=== PATIENT | female | born 1970 | race Caucasian/White ===

== ENCOUNTER 2021-02-19 03:36 | Emergency (ER) | payer SELFPAY ==
[2021-02-19 03:38] VITALS: BP 156/91; PULSE 89; RESP 14; TEMP 36.7; O2SAT 99; BMI 20.6
--- NOTE | 2021-02-19 04:02 | CT_ITS ---
HISTORY: pain, mass EXAMINATION: CT Soft Tissue Neck W/ Contrast Injection TECHNIQUE: Helically acquired images were obtained of the neck following IV contrast. A radiation dose optimization technique was used for this scan. IV Contrast dosage and agent: IV 75mL [id number] COMPARISON: None FINDINGS: Pharyngeal tonsils are symmetric and normal in appearance. Parapharyngeal fat is preserved. Normal epiglottis. No prevertebral soft tissue thickening. No evidence of pharyngeal mass. Base of tongue is symmetric, unremarkable. Superficial soft tissue fluid collection or focal inflammatory change. No radiodense soft tissue foreign body. No cervical adenopathy. Scattered ethmoid and maxillary mucoperiosteal thickening. Unremarkable orbits. Unremarkable thyroid. Mild scarring in the lung apices. No acute osseous finding. Small posterior disc osteophyte complex C5-C6 with moderate spinal canal stenosis and suggestion of effacement of the anterior cord. CT/Soft Tissue Neck WITH Contrast IMPRESSION: No acute CT finding. Consider ENT follow-up. There is high concern for neoplastic process MRI with IV contrast could further evaluate. C5-C6 spondylosis with suggestion of effacement of the anterior cord. Consider MRI follow-up. Individualized dose optimization techniques were used for this CT. at 0617 Reported and signed by: Gabriel Duggan MD Electronically Signed: Gabriel Duggan MD at 6:16 EDT Tel , Service support ,
--- NOTE | 2021-02-19 04:03 | EX.ED.DYSGE1 ---
HPI History of Present Illness Chief Complaint: Other, Pain/Inj Informant: patient Narrative Narrative: Patient presents with concern that she has a mass in her neck. She feels as though it is about to explode. She has a history of thyroid cancer with surgery and excision back in 2010. Lymph nodes were negative. She has been maintained on Synthroid since. She has not had a level checked in a long time because she is not able to wear a mask and could not go to the lab to have lab work done. She states the area in her neck is been sensitive for 2 or 3 years. She feels as though the lymph nodes are enlarging. She feels like there is a sense that things are going to explode. She is able to eat drink swallow and breathe without difficulty. It is hard to get what happened tonight to bring her into the emergency department. Nothing specifically makes her symptoms better or worse. [facility] Medical History [facility] transplant recipient Thyroid cancer Home Medications dextroamphetamine-amphetamine [Adderall XR] 30 mg PO DAILY 02/19/21 [History Last Taken Unknown] levothyroxine [Synthroid] 125 mcg PO DAILY 02/19/21 [History Last Taken Unknown] Allergy/AdvReac Type Severity Reaction Status Date / Time gluten Allergy Other Verified 02/19/21 03:43 hops Allergy Other Verified 02/19/21 03:43 milk Allergy Other Verified 02/19/21 03:43 Sulfa (Sulfonamide Allergy Rash Verified 02/19/21 03:43 Antibiotics) Yeast Allergy Other Verified 02/19/21 03:43 Surgical History H/O thyroidectomy H/O tubal ligation History of bunionectomy Social History Smoking Status: Never smoker ROS ROS ED Constitutional Constitutional ED: Denies chills, fever(s) or weight loss Eyes Eyes: Denies blurry vision ENT ENT ED: Reports other Details: See history of present illness. Internal throat itself is not sore. ; Denies ear pain, rhinorrhea or sore throat Cardiovascular Cardiovascular: Denies chest pain, palpitations or racing heartbeat Respiratory/Chest Respiratory/Chest: Denies cough, dyspnea or dyspnea on exertion Gastrointestinal Gastrointestinal: Denies abdominal pain, nausea or vomiting Musculoskeletal Musculoskeletal: Reports neck pain Integumentary Denies abscess or rash Neurologic Neurologic: Denies headache(s), paresthesias or weakness Psychiatric Psychiatric: Reports other Endocrine Endocrinology: Denies polydipsia or polyuria Allergic/Immunologic Allergic/Immunologic ED: Denies urticaria EXAM Physical Exam Const Vital Signs: 02/19/21 03:38 02/19/21 03:46 Temperature 98.1 F Temperature Source Temporal Pulse Rate 89 Respiratory Rate 14 Respiratory Effort Non-Labored Blood Pressure 156/91 H Blood Pressure Mean 112 Pulse Ox 99 Oxygen Delivery Method Room Air Positive well nourished and well developed Constitutional Narrative: Patient is laying back on the bed. She looks comfortable. No trouble breathing. General Appearance ED: well developed and NAD HEENT HEENT Narrative: Internal pharynx is normal. Voice is normal. Secretion handling is normal. She has scarring over the base of her neck but this is not new. I feel no lymph nodes or notable mass. There is no asymmetry. Negative for trauma or tenderness Eyes EOMs intact bilaterally Neck Neck Narrative: See above HEENT. Chest Wall inspection of chest normal Resp normal respiratory effort Cardio regular rate and regular rhythm Extremity normal to inspection General Extremety ED: Negative for edema General Extremity: Negative for edema Neuro oriented x3 Sensorium / Orientation: alert Psych mental status grossly normal Mood & Affect: anxious Skin no rashes or lesions noted MDM MDM MDM Narrative Medical decision making narrative: Patient CBC shows minimal nonspecific anemia. Electrolytes were overall normal. TSH was elevated. Patient now states that she has been missing her meds. I explained she should follow-up with her primary physician with these results. They can adjust medication as needed based on her history. Her CAT scan shows no sign of mass lymphadenopathy tumor etc. There are some arthritic changes. Patient will follow up with her primary physician. She should return with worsening pain, trouble swallowing or breathing. Lab Data Labs: Laboratory Results - last 24 hr 02/19/21 02/19/21 04:11 04:11 WBC 5.6 RBC 3.89 L Hgb 11.6 L Hct 36.2 L MCV 93.1 MCH 29.8 MCHC 32.0 RDW Std Deviation 55.9 H RDW Coeff of Conrado 16.3 H Plt Count 247 MPV 12.4 H Immature Gran % (Auto) 0.200 Neut % (Auto) 49.4 Lymph % (Auto) 33.0 [place] % (Auto) 11.3 H Eos % (Auto) 4.8 Baso % (Auto) 1.3 H Absolute Neuts (auto) 2.8 Absolute Lymphs (auto) 1.84 Nucleated RBC % 0 Sodium 139 Potassium 3.9 Chloride 105 Carbon Dioxide 31.0 Anion Gap 3 L BUN 10 Creatinine 0.79 Estim Creat Clear Calc 74.75 Est GFR (MDRD) Af Amer 99 Est GFR (MDRD) Non-Af 82 BUN/Creatinine Ratio 12.7 Glucose 92 Calcium 9.8 TSH 55.80 H Radiography Diagnostic Testing: Radiology Impression Soft Tissue Neck CT 02/19/21 04:02 IMPRESSION: No acute CT finding. Consider ENT follow-up. There is high concern for neoplastic process MRI with IV contrast could further evaluate. C5-C6 spondylosis with suggestion of effacement of the anterior cord. Consider MRI follow-up. Individualized dose optimization techniques were used for this CT. at 0617 Reported and signed by: Gabriel Duggan MD Electronically Signed: Gabriel Duggan MD at 6:16 EDT Tel , Service support , Discharge Plan Triage Chief Complaint: Other, Pain/Inj ED Provider: Jarret Oneil Dx/Rx/DC Orders Clinical Impression: Anterior neck pain, Hypothyroidism Instructions: ED Hypothyroidism Prescriptions: No Action levothyroxine [Synthroid] 125 mcg Tablet 125 mcg PO DAILY RF: 0 dextroamphetamine-amphetamine [Adderall XR] 30 mg Capsule,Extended Release 24hr 30 mg PO DAILY RF: 0 Primary Care Provider: Vlad Solis Referrals: Vlad Solis DO [Primary Care Provider] - 3-5 Days Disposition Disposition: Home, Self Care
[2021-02-19 04:24] LABS: Absolute Lymphocyte Count 1.84 X10^3/uL (0.83-4.51); Absolute Neutrophil Count 2.8 X10^3/uL (2.0-7.7); Basophil# 0.07 X10^3/uL; Basophil% 1.3 % (0-1); Eosinophil# 0.27 X10^3/uL; Eosinophils% 4.8 % (0-5); Hematocrit 36.2 % (37-47); Hemoglobin 11.6 g/dL (12.0-15.0); Lymphocyte # 1.84 X10^3/ul (0.83-4.51); Mean Corpuscular Hgb 29.8 pg (27.0-32.0); Mean Corpuscular Volume 93.1 fL (81-99); Mean Platelet Vol. 12.4 fl (6.2-12.0); Monocyte# 0.63 X10^3/uL; Monocyte% 11.3 % (0-10); NRBC Flagged by Analyzer 0 % (0-5); Neutrophil # 2.76 X10^3/uL (2.7-7.7); Neutrophil % 49.4 % (47-70); Platelet Count 247 K/mm3 (150-450); RBC Distribution Width CV 16.3 % (11.6-14.6); RBC Distribution Width SD 55.9 fl (35.1-43.9); Red Blood Count 3.89 M/mm3 (4.2-5.4); White Blood Count 5.6 K/mm3 (4.4-11.0)
[2021-02-19 04:43] LABS: Anion Gap 3 (5-15); BUN 10 mg/dL (7-18); BUN/Creat Ratio 12.7 RATIO (10-20); Calcium,Total 9.8 mg/dL (8.5-10.1); Chloride 105 mmol/L (98-107); Creatinine, Serum 0.79 mg/dL (0.55-1.02); EST Glomerular Filtration Rate 82 mL/min (>60); Est Glom Filt Rate - Afr Amer 99 mL/min (>60); Estimated Creatinine Clearance 74.75 ml/min; Glucose 92 mg/dL (74-106); Potassium 3.9 mmol/L (3.5-5.1); Sodium Level 139 mmol/L (136-145)
[2021-02-19 07:19] VITALS: BP 123/74; PULSE 81; RESP 18; O2SAT 99
--- NOTE | 2021-02-19 07:20 | ED.RN ---
THIS NURSE REVIEWED D/C INSTRUCTIONS WITH PT. PT REQUESTING A STREP TEST. THIS NURSE SPOKE WITH DR WHITE ABOUT THE SAME. DR WHITE DOES NOT FEEL SHE NEEDS A STREP TEST BECAUSE HER CT DOES NOT SHOW HER LYMPH NODES SWOLLEN, SHE HAS NO FEVER, AND NO OTHER SYMPTOMS CONCERNING FOR ACUTE STREP. THIS INFORMATION WAS RELAYED TO THE PT. IV D/C. IV CATHETER INTACT. PT TOLERATED WELL. PT DENIES FURTHER NEEDS OR QUESTIONS AT THIS TIME
== END 2021-02-19 07:22 | disposition home or self-care (01) ==
PROVIDERS: Emergency Provider Emergency Medicine; PCP Family Medicine
DX: E03.9 Hypothyroidism, unspecified (principal); M54.2 Cervicalgia; Z94.7 Corneal transplant status; Z85.850 Personal history of malignant neoplasm of thyroid
CPT/HCPCS: 70491; 80048; 84443; 85025; 99284; Q9967; A4216